=== PATIENT | male | born 1965 | race Caucasian/White ===

== ENCOUNTER 2016-09-19 04:03 | Emergency (ER) | payer MEDICARE ==
[~2016-09-19 04:03] MED LIST: ASPIR 8181 MG PO; BUSPIRONE HCL15 MG PO; KEPPRA500 MG PO; MECLIZINE HCL25 MG PO; OMEPRAZOLE20 M1 PO; PLAVIX 75 MG TA75 MG PO; SEROQUEL300 MG PO; TOPAMAX25 MG PO
== END 2016-09-19 05:34 | disposition home or self-care (01) ==
LOC: ER1 04:03
DX: M10.9 Gout, unspecified (principal); F17.210 Nicotine dependence, cigarettes, uncomplicated; Z79.899 Other long term (current) drug therapy; Z86.73 Personal history of transient ischemic attack (TIA), and cerebral infarction without residual deficits
CPT/HCPCS: 96372; 99283; J2930

== ENCOUNTER 2020-06-20 06:25 | Emergency (ER) | payer MEDICARE, OTHER ==
[~2020-06-20 06:25] MED LIST changes: +BUSPAR 5MG TABLE5 MG PO; -BUSPIRONE HCL15 MG PO; +CYCLOBENZAPRINE10 MG PO; +DIASTAT ACUDIA1 EAC1 PR; +EFFEXOR XR75 MG PO; +IBU800 MG PO; +TOPAMAX 100 MG100 MG PO; -TOPAMAX25 MG PO; +TOPAMAX50 MG PO; +TORADOL 10 MG T10 MG PO; +ZOCOR20 MG PO
[2020-06-20 06:50] LABS: HEMOGLOBIN 14.4 gm/dl (14.0-17.5); RED BLOOD COUNT 4.64 M/UL (4.20-5.50); WHITE BLOOD COUNT 7.2 K/UL (4.5-11.0)
== END 2020-06-20 09:19 | disposition home or self-care (01) ==
LOC: ER1 06:25
PROVIDERS: Family Medicine
DX: G40.409 Other generalized epilepsy and epileptic syndromes, not intractable, without status epilepticus (principal); Z98.890 Other specified postprocedural states
CPT/HCPCS: 70450; 80053; 80201; 85025; 93005; 99285; G0480